=== PATIENT | female | born 1940 | race African-American/Black ===

== ENCOUNTER 2018-12-13 11:23 | Emergency (ER) | payer OTHER ==
[~2018-12-13] VITALS: Ht 162.6 cm; Wt 87.1 kg
[~2018-12-13 11:23] MED LIST: ADVAIRDISKUS; ALBUTEROL INHAL17 GM IH; AMLODIPINE; CEFTIN500 MG PO; COMBIVENT IN; GLUCOPHAGE; LIPITOR; NEXIUM; PREDNISONE 20 M20 MG PO
[2018-12-13] MEDS ORDERED: ULTRAM 50MG TAB50 MG PO (12:41)
[2018-12-13 13:06] VITALS: BP 126/86
== END 2018-12-13 13:07 | disposition home or self-care (01) ==
LOC: EDBD 11:23 → ER 11:23
DX: M79.604 Pain in right leg (principal); M79.89 Other specified soft tissue disorders; J45.909 Unspecified asthma, uncomplicated; I10 Essential (primary) hypertension; E11.9 Type 2 diabetes mellitus without complications

== ENCOUNTER 2020-07-21 14:48 | Emergency (ER) | payer OTHER ==
[~2020-07-21] VITALS: Ht 162.6 cm; Wt 86.2 kg
[~2020-07-21 14:48] MED LIST changes: +ULTRAM 50MG TAB50 MG PO
[2020-07-21 14:52] VITALS: BP 185/93
[2020-07-21] MEDS ORDERED: CIPRODEX OTIC7.5 ML OTIC (17:16)
== END 2020-07-21 17:33 | disposition home or self-care (01) ==
LOC: ER 14:48
DX: H60.91 Unspecified otitis externa, right ear (principal); J02.9 Acute pharyngitis, unspecified; E11.9 Type 2 diabetes mellitus without complications; I10 Essential (primary) hypertension; J45.909 Unspecified asthma, uncomplicated; Z20.828 Contact with and (suspected) exposure to other viral communicable diseases; Z79.899 Other long term (current) drug therapy